=== PATIENT | female | born 1950 | race Caucasian/White ===

== ENCOUNTER 2016-10-14 19:29 | Emergency (ER) | payer OTHER ==
[2016-10-14 19:42] VITALS: RESP 16; TEMP 98.2; O2SAT 94
[2016-10-14] MEDS ORDERED: IBUPROFEN 200 MG TAB PO ONE (19:45)
--- NOTE | 2016-10-14 19:53 | EDPHY ---
H & P Time Seen by Provider: 10/14/16 19:44 HPI/ROS: CHIEF COMPLAINT: Right knee injury HISTORY OF PRESENT ILLNESS: 8:30 a.m. yesterday was baby-sitting friend's dog and got knocked over. She landed on hands and knees striking her right knee on the ground. Right knee pain both anteriorly and posteriorly since then which is worse with weight-bearing and associated with not being able to extend it fully. No weakness or numbness distally. REVIEW OF SYSTEMS: No hip or ankle or foot symptoms. PAST MEDICAL HISTORY: Includes hypertension, migraines, hypercholesterolemia. Asthma, tonsillectomy, hysterectomy. General Appearance: Alert and conversant, cooperative. 2 x 3 cm bruise right knee inferior lateral to the patella. There is swelling noted around the joint. Nontender distal tib-fib and ankle and foot. Normal motor sensory and pulse in the right foot. No hip pain with rotation. Compartments and thigh and calf are soft. Unable to do full extension, can flex to about 90 degrees. Bony tenderness around the knee but not in femur or in the tibia or fibula. Emergency Department course/MDM: Oral ibuprofen, x-ray of the right knee ordered. Indication is pain after trauma 2007: Right knee x-ray reviewed with radiologist Dr. Jarvis possible medial tibial plateau fracture, CT of the right knee discussed with the patient and consented. Additional pain medications including narcotics declined. 2030: CT scan personally reviewed, no fracture noted. Results discussed with the patient. Knee immobilizer, crutches, PHILIP wrap, mandatory orthopedic follow- up. Warned cannot exclude internal injury such as ACL at this time, discussed possible muscle tear seen on CT. Negative CT for fracture, reviewed with Simona at 2044; possible muscle tear. Smoking Status: Never smoked Constitutional: Initial Vital Signs Temperature (C) 36.8 C 10/14/16 19:38 Heart Rate 81 10/14/16 19:38 Respiratory Rate 16 10/14/16 19:38 Blood Pressure 153/73 H 10/14/16 19:38 O2 Sat (%) 94 10/14/16 19:38 O2 Delivery Mode Room Air Allergies/Adverse Reactions: codeine [Codeine] Allergy (Intermediate, Verified 10/14/16 19:35) morphine Allergy (Intermediate, Verified 10/14/16 19:35) EGGS Allergy (Severe, Uncoded 10/14/16 19:35) Hives Home Medications: Medication Instructions Recorded Fexofenadine HCl [Pari] 180 mg PO 12/13/12 Lutein 20 mg PO 12/13/12 Provertic 6.7g 12/13/12 Simvastatin 20 mg PO 12/13/12 Turmeric [Curcumin] 1 gm MC 12/13/12 Valsartan [Diovan 160MG (RX)] 160 mg PO DAILY 12/13/12 epINEPHrine [Epipen] 0.3 mg IM 12/13/12 Albuterol Inhaler Hfa 04/22/14 Vitamin D3 04/22/14 Aspirin [Aspirin 81mg (OTC)] 81 mg PO DAILY 04/28/14 MDM/Departure - MDM Medications Given: Discontinued Medications Ibuprofen (Motrin) 600 mg PO EDNOW ONE Stop: 10/14/16 19:46 Last Admin: 10/14/16 19:56 Dose: 600 mg - Depart Disposition: Home, Routine, Self-Care Clinical Impression: Muscle strain Contusion of right knee, initial encounter Qualifiers: Encounter type: sequela Qualified Code(s): S80.01XS - Contusion of right knee, sequela Condition: Good Instructions: Contusion in Adults (ED), Knee Immobilizer (ED) Referrals: Usha Peng MD [Primary Care Provider] - As per Instructions Alexi Sommer MD [Medical Doctor] - 5-7 days, if not improved (please followup for recheck with this ortho referral if not 100% better next week)
[2016-10-14 21:00] VITALS: BP 153/80; PULSE 77
== END 2016-10-14 21:00 | disposition home or self-care (01) ==
LOC: CED 19:29
DX: S80.01XA Contusion of right knee, initial encounter (principal); S86.911A Strain of unspecified muscle(s) and tendon(s) at lower leg level, right leg, initial encounter; I10 Essential (primary) hypertension; J45.909 Unspecified asthma, uncomplicated; Z79.82 Long term (current) use of aspirin; W22.8XXA Striking against or struck by other objects, initial encounter; Y92.009 Unspecified place in unspecified non-institutional (private) residence as the place of occurrence of the external cause
CPT/HCPCS: 73564; 73700; 99284; L1830